=== PATIENT | female | born 1980 | race Caucasian/White ===

== ENCOUNTER 2023-05-20 20:28 | Emergency (ER) | payer MEDICAID, OTHER ==
[~2023-05-20] VITALS: Ht 162.6 cm; Wt 59.0 kg
[2023-05-20 20:39] VITALS: O2SAT 98
[2023-05-20] MEDS ORDERED: KETOROLAC 30MG/ML VIAL IV STA (20:55)
[2023-05-20] MEDS ORDERED: ACETAMINOPHEN 325MG TABLET PO STA (20:55)
[2023-05-20] MEDS ORDERED: CEFTRIAXONE 1GM PREMIX 50 ML IV ONE (21:00)
[2023-05-20] MEDS ORDERED: SODIUM CHLORIDE 0.9% 1000ML BAG (SEPSIS BOLUS) IV ONE (21:00)
[2023-05-20 21:40] LABS: HEMATOCRIT. 34.7 % (36.0-48.0); HEMOGLOBIN. 11.7 g/dL (12.0-16.0); MEAN CORPUSCULAR HEMOGLOBIN 29.4 pg (28.0-32.0); MEAN CORPUSCULAR HGB CONC 33.6 g/dL (31.0-37.0); MEAN CORPUSCULAR VOLUME 87.5 fL (81.0-99.0); MEAN PLATELET VOLUME 8.3 fl (7.4-10.4); PLATELET 284 x1000/uL (130-400); RED BLOOD CELL COUNT 3.97 mill/uL (4.2-5.4); RED CELL DISTRIBUTION WIDTH 15.2 % (11.6-14.6); WHITE BLOOD COUNT 11.4 x1000/uL (4.5-11.0)
[2023-05-20 21:41] LABS: DIFFERENTIAL COMMENT 1
[2023-05-20 21:52] LABS: HCG SCREEN NEGATIVE
[2023-05-20 21:54] LABS: ALANINE AMINOTRANSFERASE 10 IU/L (10-49); ALBUMIN 4.4 g/dL (3.2-4.8); ASPARTATE AMINOTRANSFERASE 17 IU/L (<34); BILIRUBIN TOTAL 0.6 mg/dL (0.1-1.0); CALCIUM 9.9 mg/dL (8.7-10.4); CARBON DIOXIDE 22 mEq/L (21-32); CHLORIDE 106 mEq/L (98-107); CREATININE 0.6 mg/dL (0.6-1.0); GLUCOSE 124 mg/dL (70-105); POTASSIUM 3.2 mEq/L (3.5-5.1); PROTEIN TOTAL 6.8 g/dL (6.0-8.3); SODIUM 136 mEq/L (136-145); UREA NITROGEN BLOOD 11 mg/dL (9-23)
[2023-05-20 22:49] LABS: PLATELET ESTIMATE NORMAL
[2023-05-20 22:50] LABS: ANISOCYTOSIS 1+
[2023-05-21] MEDS ORDERED: POTASSIUM CHLORIDE 20MEQ/PACKET PO ONE
[2023-05-21 00:44] VITALS: TEMP 98.3
[2023-05-21 01:22] LABS: CLARITY URINE CLOUDY (CLEAR)
[2023-05-21 01:23] LABS: COLOR URINE YELLOW (YELLOW); GLUCOSE URINE NEGATIVE (NEGATIVE); KETONES URINE NEGATIVE (NEGATIVE); NITRITE URINE POSITIVE (NEGATIVE); OCCULT BLOOD URINE TRACE (NEGATIVE); PROTEIN URINE NEGATIVE (NEGATIVE); SPECIFIC GRAVITY URINE 1.015 (1.005-1.030)
[2023-05-21 01:24] LABS: LEUKOCYTE ESTERASE URINE 1+ (NEGATIVE); UROBILINOGEN URINE 0.2 E.U./dL (0.2-1.0)
[2023-05-21] MEDS ORDERED: CEPH500C2 MT (01:36)
[2023-05-21 01:37] LABS: SQUAMOUS EPITHELIAL CELL URINE 1+ /lpf (RARE/1+)
[2023-05-21 01:38] LABS: WBC URINE 50-100 /hpf (0-2)
[2023-05-21 01:39] LABS: BACTERIA URINE 1+; RBC URINE 0-2 /hpf (0-2)
[2023-05-21 03:00] VITALS: BP 100/70; PULSE 96; RESP 17
== END 2023-05-21 03:10 | disposition home or self-care (01) ==
LOC: ER 20:28
DX: N39.0 Urinary tract infection, site not specified (principal); R50.9 Fever, unspecified; Z20.822 Contact with and (suspected) exposure to COVID-19
CPT/HCPCS: 80053; 81003; 84703; 83605; 85025; 87040; 87086; 87804 ×2; 36415; 71045; 93005; 96365; 96375; 99285; 87426; J0696; J1885; J7030; C9803; Z7610 ×4